=== PATIENT | male | born 1945 | race Hispanic/Latino ===

== ENCOUNTER 2020-09-04 18:16 | Inpatient (IN) | payer OTHER, MEDICARE ==
[~2020-09-04] VITALS: Ht 160 cm; Wt 96.2 kg
[2020-09-04 18:46] LABS: ABG HCO3 20.7 mmol/L (21.0-28.0); ABG OXYGEN SATURATION 84.1 % (95.0-99.0); ABG PCO2 33 mmHg (35-48)
[2020-09-04 18:57] LABS: BASOPHILS % (AUTO) 0.2 % (0.0-5.0); HEMATOCRIT 36.5 % (42-54); LYMPHOCYTES % (AUTO) 20.6 % (21.0-51.0); MEAN CORPUSCULAR HEMOGLOBIN 30.9 pg (27.0-33.0); MEAN CORPUSCULAR HGB CONC 34.8 g/dL (32.0-36.0); MEAN CORPUSCULAR VOLUME 88.8 fL (79-99); MONOCYTES % (AUTO) 9.1 % (3.0-13.0); NEUTROPHILS % (AUTO) 69.7 % (40.0-77.0); PLATELET COUNT (AUTO) 68 K/uL (130-400); RED BLOOD CELL COUNT(AUTO) 4.11 MIL/uL (4.50-6.20); RED CELL DISTRIBUTION WIDTH 12.8 % (11.0-15.5); WHITE BLOOD COUNT (AUTO) 4.7 K/uL (4.8-10.8)
[2020-09-04 19:04] LABS: CREATININE 1.8 mg/dL (0.5-1.5); POTASSIUM 3.9 mmol/L (3.5-5.1)
[2020-09-04 19:08] LABS: ALBUMIN 3.2 g/dL (3.5-5.0); BILIRUBIN,TOTAL 0.4 mg/dL (0.2-1.0); CRP QUANTITATIVE 170.1 mg/L (0.00-9.0); MAGNESIUM 1.6 mg/dL (1.80-2.40); PHOSPHORUS 2.3 mg/dL (2.5-4.9); TOTAL PROTEIN, SERUM 7.5 g/dL (6.0-8.3)
[2020-09-04] MEDS ORDERED: ALBUTEROL INHALER 90MCG/INH IH ONE (19:18)
[2020-09-04] MEDS ORDERED: DEXAMETHASONE SOD PHOSPHATE 4 MG/ML 1ML VIAL ONE (19:18)
[2020-09-04] MEDS ORDERED: CEFTRIAXONE 1G VIAL ONE (19:19)
[2020-09-04] MEDS ORDERED: ACETAMINOPHEN 325 MG TAB ONE (19:19)
[2020-09-04] MEDS ORDERED: AZITHROMYCIN 500MG+NS 250ML 250 ML IV ONE (19:19)
[2020-09-04 20:01] LABS: B-TYPE NATRIURETIC PEPTIDE 92 pg/mL (0-100)
[2020-09-04 20:15] LABS: INR 1.07 (0.85-1.15); PROTHROMBIN TIME 11.4 SEC (9.6-11.6)
[2020-09-04 20:17] LABS: PARTIAL THROMBOPLASTIN TIME 38.3 SEC (26.3-35.5)
[2020-09-04] MEDS: CEFTRIAXONE 1G VIAL IVP SCH (21:15)
[2020-09-04] MEDS: DEXAMETHASONE SOD PHOSPHATE 4 MG/ML 1ML VIAL IVP SCH (21:15)
[2020-09-04] MEDS: AZITHROMYCIN 500MG+NS 250ML 250 ML IV SCH (21:15)
[2020-09-04] MEDS ORDERED: ERGOCALCIFEROL (VITAMIN D2) 50,000 UNIT CAPSULE PO ONE (21:15)
[2020-09-04] MEDS ORDERED: ACETAMINOPHEN 325 MG TAB PO PRN (21:30)
[2020-09-04] MEDS ORDERED: DiphenhydrAMINE HCL 50 MG/ML VIAL IV PRN (21:30)
[2020-09-04] MEDS ORDERED: NITROGLYCERIN 0.4 MG SL TAB SL PRN (21:30)
[2020-09-04] MEDS ORDERED: ONDANSETRON 4MG INJ IV PRN (21:30)
[2020-09-04] MEDS ORDERED: ENOXAPARIN SODIUM 40 MG/0.4 ML SYRINGE SQ ONE (23:24)
[2020-09-04] MEDS ORDERED: ERGOCALCIFEROL (VITAMIN D2) 50,000 UNIT CAPSULE ONE (23:24)
[2020-09-05 05:38] LABS: HEMATOCRIT 34.8 % (42-54); LYMPHOCYTES % (AUTO) 12.1 % (21.0-51.0); MEAN CORPUSCULAR HEMOGLOBIN 30.7 pg (27.0-33.0); MEAN CORPUSCULAR HGB CONC 34.5 g/dL (32.0-36.0); MONOCYTES % (AUTO) 4.9 % (3.0-13.0); NEUTROPHILS % (AUTO) 82.8 % (40.0-77.0); PLATELET COUNT (AUTO) 69 K/uL (130-400); RED BLOOD CELL COUNT(AUTO) 3.91 MIL/uL (4.50-6.20); RED CELL DISTRIBUTION WIDTH 12.9 % (11.0-15.5); WHITE BLOOD COUNT (AUTO) 4.1 K/uL (4.8-10.8)
[2020-09-05 06:04] LABS: ALBUMIN 2.9 g/dL (3.5-5.0); BILIRUBIN,TOTAL 0.4 mg/dL (0.2-1.0); CREATININE 1.4 mg/dL (0.5-1.5); CRP QUANTITATIVE 125.1 mg/L (0.00-9.0); POTASSIUM 4.2 mmol/L (3.5-5.1)
[2020-09-05] MEDS ORDERED: ASCORBIC ACID 500 MG TAB ONE (07:43)
[2020-09-05] MEDS ORDERED: CEFTRIAXONE 1G VIAL ONE ×2 (07:43→21:27)
[2020-09-05] MEDS ORDERED: ZINC SULFATE 220 CAPSULE ONE (07:43)
[2020-09-05] MEDS ORDERED: FAMOTIDINE 20MG VIAL IV ONE (07:44)
[2020-09-05] MEDS: ENOXAPARIN SODIUM 40 MG/0.4 ML SYRINGE SQ SCH (09:00)
[2020-09-05] MEDS: ZINC SULFATE 220 CAPSULE PO SCH (09:00)
[2020-09-05] MEDS: FAMOTIDINE 20MG VIAL IV SCH (09:00)
[2020-09-05] MEDS: ASCORBIC ACID 500 MG TAB PO SCH (09:00)
[2020-09-05] MEDS: CEFTRIAXONE 1G VIAL IVP SCH ×2 (09:15→21:15)
[2020-09-05] MEDS ORDERED: MAGNESIUM 2GM PREMIX 50ML 50 ML IV SCH (10:45)
[2020-09-05] MEDS ORDERED: MAGNESIUM 2GM PREMIX 50ML 50 ML IV ONE (10:55)
[2020-09-05] MEDS ORDERED: FUROSEMIDE 40MG VIAL IV SCH (13:00)
[2020-09-05] MEDS ORDERED: FUROSEMIDE 20MG VIAL ONE ×2 (13:07→13:13)
[2020-09-05] MEDS ORDERED: DiphenhydrAMINE HCL 50 MG/ML VIAL ONE (13:28)
[2020-09-05] MEDS ORDERED: MORPHINE 2 MG SYG ONE (13:29)
[2020-09-05 14:13] LABS: ABG BASE EXCESS -6.7 mmol/L (-2.0-3.0); ABG OXYGEN SATURATION 96.8 % (95.0-99.0); ABG PCO2 34 mmHg (35-48)
[2020-09-05] MEDS ORDERED: SODIUM BICARB 50MEQ 50ML VIAL 100 ML ONE (14:25)
[2020-09-05] MEDS ORDERED: DEXMEDETOMIDINE HCL 400 MCG in 0.9%NACL 100ML 100 ML IV SCH (14:45)
[2020-09-05] MEDS ORDERED: ACETAMINOPHEN 650 MG SUPPOSITORY RC ONE (14:58)
[2020-09-05] MEDS ORDERED: IBUPROFEN 200 MG TAB ONE (15:46)
[2020-09-05] MEDS ORDERED: IBUPROFEN 400 MG TABLET ONE (15:46)
[2020-09-05] MEDS ORDERED: 0.9%NACL 1000ML 1,000 ML IV ONE ×2 (20:35→20:44)
[2020-09-05] MEDS: DEXAMETHASONE SOD PHOSPHATE 4 MG/ML 1ML VIAL IVP SCH (21:15)
[2020-09-05] MEDS ORDERED: DEXAMETHASONE SOD PHOSPHATE 10MG/ML 1ML VIAL ONE (21:26)
[2020-09-05] MEDS ORDERED: AZITHROMYCIN 500MG+NS 250ML 250 ML IV ONE (21:26)
[2020-09-06] VITALS (9 sets, daily range): BP systolic 100–197; BP diastolic 65–110
[2020-09-06 03:13] LABS: ABG BASE EXCESS 0.5 mmol/L (-2.0-3.0); ABG OXYGEN SATURATION 98.3 % (95.0-99.0); ABG PCO2 40 mmHg (35-48)
[2020-09-06 05:09] LABS: HEMATOCRIT 34.7 % (42-54); LYMPHOCYTES % (AUTO) 15.3 % (21.0-51.0); MEAN CORPUSCULAR HEMOGLOBIN 30.5 pg (27.0-33.0); MEAN CORPUSCULAR VOLUME 89.7 fL (79-99); MONOCYTES % (AUTO) 5.2 % (3.0-13.0); NEUTROPHILS % (AUTO) 79.1 % (40.0-77.0); PLATELET COUNT (AUTO) 73 K/uL (130-400); RED BLOOD CELL COUNT(AUTO) 3.87 MIL/uL (4.50-6.20); RED CELL DISTRIBUTION WIDTH 12.9 % (11.0-15.5); WHITE BLOOD COUNT (AUTO) 4.8 K/uL (4.8-10.8)
[2020-09-06 05:40] LABS: ALBUMIN 2.7 g/dL (3.5-5.0); BILIRUBIN,TOTAL 0.4 mg/dL (0.2-1.0); CREATININE 1.9 mg/dL (0.5-1.5); CRP QUANTITATIVE 164.7 mg/L (0.00-9.0); MAGNESIUM 1.7 mg/dL (1.80-2.40); POTASSIUM 4.9 mmol/L (3.5-5.1); TOTAL PROTEIN, SERUM 6.8 g/dL (6.0-8.3)
[2020-09-06] MEDS ORDERED: DIAZEPAM 2 MG TAB PO PRN (08:30)
[2020-09-06] MEDS: ENOXAPARIN SODIUM 40 MG/0.4 ML SYRINGE SQ SCH (08:35)
[2020-09-06] MEDS: ZINC SULFATE 220 CAPSULE PO SCH (08:36)
[2020-09-06] MEDS: ASCORBIC ACID 500 MG TAB PO SCH (08:36)
[2020-09-06] MEDS: FAMOTIDINE 20MG VIAL IV SCH (08:37)
[2020-09-06] MEDS: CEFTRIAXONE 1G VIAL IVP SCH ×2 (08:37→20:55)
[2020-09-06] MEDS: DEXAMETHASONE SOD PHOSPHATE 4 MG/ML 1ML VIAL IVP SCH (08:48)
[2020-09-06] MEDS: MORPHINE 2 MG SYG IV PRN (11:33)
[2020-09-06] MEDS: DIAZEPAM 2 MG TAB PO PRN (13:43)
[2020-09-06] MEDS ORDERED: QUETIAPINE FUMARATE 25 MG TAB ONE (14:12)
[2020-09-06] MEDS: AZITHROMYCIN 500MG+NS 250ML 250 ML IV SCH (20:55)
[2020-09-06] MEDS: QUETIAPINE FUMARATE 25 MG TAB PO SCH (20:55)
[2020-09-07 04:00] VITALS: BP 173/86
[2020-09-07 04:54] LABS: LYMPHOCYTES % (AUTO) 10.2 % (21.0-51.0); MEAN CORPUSCULAR HEMOGLOBIN 30.9 pg (27.0-33.0); MEAN CORPUSCULAR HGB CONC 33.6 g/dL (32.0-36.0); MEAN CORPUSCULAR VOLUME 91.9 fL (79-99); MONOCYTES % (AUTO) 9.9 % (3.0-13.0); NEUTROPHILS % (AUTO) 79.1 % (40.0-77.0); PLATELET COUNT (AUTO) 72 K/uL (130-400); RED BLOOD CELL COUNT(AUTO) 3.59 MIL/uL (4.50-6.20); RED CELL DISTRIBUTION WIDTH 13.2 % (11.0-15.5); WHITE BLOOD COUNT (AUTO) 3.6 K/uL (4.8-10.8)
[2020-09-07 05:19] LABS: ALBUMIN 2.4 g/dL (3.5-5.0); BILIRUBIN,TOTAL 0.4 mg/dL (0.2-1.0); CREATININE 1.3 mg/dL (0.5-1.5); MAGNESIUM 2.3 mg/dL (1.80-2.40); PHOSPHORUS 2.7 mg/dL (2.5-4.9); POTASSIUM 4.2 mmol/L (3.5-5.1); TOTAL PROTEIN, SERUM 6.8 g/dL (6.0-8.3)
[2020-09-07] MEDS: DIAZEPAM 2 MG TAB PO PRN ×3 (06:04→23:42)
[2020-09-07 07:23] VITALS: BP 189/97
[2020-09-07] MEDS ORDERED: HYDRALAZINE 20MG/ML VIAL IV PRN (08:00)
[2020-09-07] MEDS: CEFTRIAXONE 1G VIAL IVP SCH ×2 (08:30→21:04)
[2020-09-07] MEDS: ZINC SULFATE 220 CAPSULE PO SCH (08:30)
[2020-09-07] MEDS: ASCORBIC ACID 500 MG TAB PO SCH (08:30)
[2020-09-07] MEDS: FAMOTIDINE 20MG VIAL IV SCH (08:30)
[2020-09-07] MEDS: QUETIAPINE FUMARATE 25 MG TAB PO SCH ×2 (08:30→19:38)
[2020-09-07] MEDS: ASPIRIN 81MG CHEW TAB PO SCH (08:30)
[2020-09-07] MEDS: ENOXAPARIN SODIUM 40 MG/0.4 ML SYRINGE SQ SCH (08:31)
[2020-09-07 11:33] VITALS: BP 184/88
[2020-09-07 20:00] VITALS: BP 139/72
[2020-09-07] MEDS: DEXAMETHASONE SOD PHOSPHATE 4 MG/ML 1ML VIAL IVP SCH (21:03)
[2020-09-07] MEDS: AZITHROMYCIN 500MG+NS 250ML 250 ML IV SCH (21:03)
[2020-09-07 23:47] VITALS: BP 162/78
[2020-09-08 04:38] VITALS: BP 136/72
[2020-09-08 04:41] LABS: HEMATOCRIT 34.2 % (42-54); MEAN CORPUSCULAR HEMOGLOBIN 30.9 pg (27.0-33.0); MEAN CORPUSCULAR HGB CONC 33.9 g/dL (32.0-36.0); RED BLOOD CELL COUNT(AUTO) 3.76 MIL/uL (4.50-6.20); RED CELL DISTRIBUTION WIDTH 13.2 % (11.0-15.5); WHITE BLOOD COUNT (AUTO) 4.7 K/uL (4.8-10.8)
[2020-09-08] MEDS: DIAZEPAM 2 MG TAB PO PRN (04:51)
[2020-09-08 04:56] LABS: CREATININE 1.1 mg/dL (0.5-1.5); MAGNESIUM 2.1 mg/dL (1.80-2.40); PHOSPHORUS 3.9 mg/dL (2.5-4.9); POTASSIUM 4.8 mmol/L (3.5-5.1)
[2020-09-08 08:00] VITALS: BP 175/86
[2020-09-08] MEDS: QUETIAPINE FUMARATE 25 MG TAB PO SCH ×2 (08:25→20:08)
[2020-09-08] MEDS: ZINC SULFATE 220 CAPSULE PO SCH (08:25)
[2020-09-08] MEDS: ASCORBIC ACID 500 MG TAB PO SCH (08:25)
[2020-09-08] MEDS: ASPIRIN 81MG CHEW TAB PO SCH (08:25)
[2020-09-08] MEDS: ENOXAPARIN SODIUM 40 MG/0.4 ML SYRINGE SQ SCH (08:25)
[2020-09-08] MEDS: CEFTRIAXONE 1G VIAL IVP SCH ×2 (09:26→20:09)
[2020-09-08] MEDS: FAMOTIDINE 20MG VIAL IV SCH (09:26)
[2020-09-08 11:00] VITALS: BP 178/96
[2020-09-08] MEDS: DEXAMETHASONE SOD PHOSPHATE 4 MG/ML 1ML VIAL IVP SCH (20:09)
[2020-09-08] MEDS: AZITHROMYCIN 500MG+NS 250ML 250 ML IV SCH (20:09)
[2020-09-08 20:15] VITALS: BP 170/102
[2020-09-08] MEDS: LABETALOL 20MG SYG IV PRN (20:20)
[2020-09-08 21:10] VITALS: BP 156/94
[2020-09-09] VITALS (8 sets, daily range): BP systolic 129–167; BP diastolic 72–101
[2020-09-09 04:49] LABS: BASOPHILS % (AUTO) 0.2 % (0.0-5.0); HEMATOCRIT 34.9 % (42-54); LYMPHOCYTES % (AUTO) 6.2 % (21.0-51.0); MEAN CORPUSCULAR HEMOGLOBIN 30.5 pg (27.0-33.0); MEAN CORPUSCULAR VOLUME 92.6 fL (79-99); MONOCYTES % (AUTO) 5.3 % (3.0-13.0); NEUTROPHILS % (AUTO) 86.5 % (40.0-77.0); PLATELET COUNT (AUTO) 82 K/uL (130-400); RED BLOOD CELL COUNT(AUTO) 3.77 MIL/uL (4.50-6.20); RED CELL DISTRIBUTION WIDTH 13.2 % (11.0-15.5); WHITE BLOOD COUNT (AUTO) 5.5 K/uL (4.8-10.8)
[2020-09-09 05:08] LABS: ALBUMIN 2.4 g/dL (3.5-5.0); BILIRUBIN,TOTAL 0.7 mg/dL (0.2-1.0); CREATININE 1.1 mg/dL (0.5-1.5); MAGNESIUM 2.1 mg/dL (1.80-2.40); PHOSPHORUS 3.8 mg/dL (2.5-4.9); POTASSIUM 4.9 mmol/L (3.5-5.1); TOTAL PROTEIN, SERUM 6.9 g/dL (6.0-8.3)
[2020-09-09] MEDS: QUETIAPINE FUMARATE 25 MG TAB PO SCH ×2 (08:24→21:00)
[2020-09-09] MEDS: ASCORBIC ACID 500 MG TAB PO SCH (08:24)
[2020-09-09] MEDS: ENOXAPARIN SODIUM 40 MG/0.4 ML SYRINGE SQ SCH (08:24)
[2020-09-09] MEDS: ZINC SULFATE 220 CAPSULE PO SCH (08:24)
[2020-09-09] MEDS: CEFTRIAXONE 1G VIAL IVP SCH ×2 (08:25→21:17)
[2020-09-09] MEDS: ASPIRIN 81MG CHEW TAB PO SCH (08:25)
[2020-09-09] MEDS: FAMOTIDINE 20MG VIAL IV SCH (08:25)
[2020-09-09] MEDS ORDERED: LORAZEPAM 2 MG/ML 1 ML VIAL ONE (15:30)
[2020-09-09] MEDS ORDERED: LORAZEPAM 2 MG/ML 1 ML VIAL IM PRN (15:30)
[2020-09-09] MEDS: MORPHINE 2 MG SYG IV PRN (15:37)
[2020-09-09] MEDS: AZITHROMYCIN 500MG+NS 250ML 250 ML IV SCH (21:16)
[2020-09-09] MEDS: DEXAMETHASONE SOD PHOSPHATE 4 MG/ML 1ML VIAL IVP SCH (21:17)
[2020-09-10] VITALS (31 sets, daily range): BP systolic 60–141; BP diastolic 16–94
[2020-09-10] MEDS: LORAZEPAM 2 MG/ML 1 ML VIAL IVP PRN ×3 (00:53→14:12)
[2020-09-10 04:06] LABS: ABG BASE EXCESS 3.9 mmol/L (-2.0-3.0); ABG OXYGEN SATURATION 89.3 % (95.0-99.0); ABG PCO2 40 mmHg (35-48)
[2020-09-10 05:12] LABS: HEMATOCRIT 36.8 % (42-54); MEAN CORPUSCULAR HEMOGLOBIN 30.4 pg (27.0-33.0); MEAN CORPUSCULAR HGB CONC 33.4 g/dL (32.0-36.0); MEAN CORPUSCULAR VOLUME 90.9 fL (79-99); RED BLOOD CELL COUNT(AUTO) 4.05 MIL/uL (4.50-6.20); WHITE BLOOD COUNT (AUTO) 8.6 K/uL (4.8-10.8)
[2020-09-10 05:41] LABS: CREATININE 1.2 mg/dL (0.5-1.5); MAGNESIUM 2.3 mg/dL (1.80-2.40); PHOSPHORUS 3.1 mg/dL (2.5-4.9); POTASSIUM 4.3 mmol/L (3.5-5.1)
[2020-09-10] MEDS: ASPIRIN 81MG CHEW TAB PO SCH (07:46)
[2020-09-10] MEDS: QUETIAPINE FUMARATE 25 MG TAB PO SCH ×2 (07:46→21:00)
[2020-09-10] MEDS: FAMOTIDINE 20MG VIAL IV SCH (07:46)
[2020-09-10] MEDS: ZINC SULFATE 220 CAPSULE PO SCH (07:46)
[2020-09-10] MEDS: DIAZEPAM 2 MG TAB PO PRN (07:47)
[2020-09-10] MEDS: ASCORBIC ACID 500 MG TAB PO SCH (07:48)
[2020-09-10] MEDS: ENOXAPARIN SODIUM 40 MG/0.4 ML SYRINGE SQ SCH (07:49)
[2020-09-10] MEDS: CEFTRIAXONE 1G VIAL IVP SCH ×2 (08:05→23:54)
[2020-09-10] MEDS: LABETALOL 20MG SYG IV PRN (12:47)
[2020-09-10] MEDS: DEXMEDETOMIDINE HCL 400 MCG in 0.9%NACL 100ML 100 ML IV SCH (15:49)
[2020-09-10] MEDS ORDERED: NOREPINEPHRIN 4MG/NS 250ML 250 ML IV ONE (20:45)
[2020-09-10] MEDS ORDERED: NOREPINEPHRIN 4MG/NS 250ML 250 ML IV SCH (21:15)
[2020-09-10] MEDS ORDERED: LORAZEPAM 2 MG/ML 1 ML VIAL IVP PRN (23:00)
[2020-09-10] MEDS: DEXAMETHASONE SOD PHOSPHATE 4 MG/ML 1ML VIAL IVP SCH (23:54)
[2020-09-10] MEDS: MORPHINE 2 MG SYG IVP PRN (23:57)
[2020-09-11] VITALS (15 sets, daily range): BP systolic 44–118; BP diastolic 28–76
[2020-09-11] MEDS: MORPHINE 2 MG SYG IVP PRN ×4 (06:18→13:06)
[2020-09-11] MEDS: DEXMEDETOMIDINE HCL 400 MCG in 0.9%NACL 100ML 100 ML IV SCH (07:30)
[2020-09-11] MEDS: ASCORBIC ACID 500 MG TAB PO SCH (07:59)
[2020-09-11] MEDS: ASPIRIN 81MG CHEW TAB PO SCH (07:59)
[2020-09-11] MEDS: ZINC SULFATE 220 CAPSULE PO SCH (07:59)
[2020-09-11] MEDS: QUETIAPINE FUMARATE 25 MG TAB PO SCH (07:59)
[2020-09-11] MEDS: LORAZEPAM 2 MG/ML 1 ML VIAL IVP PRN ×2 (08:12→10:17)
[2020-09-11] MEDS ORDERED: LORAZEPAM 2 MG/ML 1 ML VIAL IM PRN (09:15)
[2020-09-11] MEDS ORDERED: PHARMACY COMMUNICATION MISC SCH (09:15)
[2020-09-11] MEDS ORDERED: MORPHINE PCA 50MG/50ML 50 ML IV PRN (09:15)
[2020-09-11] MEDS: FAMOTIDINE 20MG VIAL IV SCH (09:26)
== END 2020-09-11 15:55 | disposition expired | DRG 177 ==
LOC: EDH 18:16 → EDHIP 21:17 → 4BH 09-06 01:29 → 4AH 09-06 22:51 → 2AH 09-09 10:48
PROVIDERS: ADMIT Internal Medicine; ATTEND Internal Medicine
PROC: XW13325 Transfusion of Convalescent Plasma (Nonautologous) into Peripheral Vein, Percutaneous Approach, New Technology Group 5 (ICD-10-PCS; principal; 2020-09-05)
PROC: 5A0935A Assistance with Respiratory Ventilation, Less than 24 Consecutive Hours, High Flow/Velocity Cannula (ICD-10-PCS; 2020-09-05)
PROC: 5A09357 Assistance with Respiratory Ventilation, Less than 24 Consecutive Hours, Continuous Positive Airway Pressure (ICD-10-PCS; 2020-09-06)
PROC: 5A09357 Assistance with Respiratory Ventilation, Less than 24 Consecutive Hours, Continuous Positive Airway Pressure (ICD-10-PCS; 2020-09-07)
PROC: 5A09357 Assistance with Respiratory Ventilation, Less than 24 Consecutive Hours, Continuous Positive Airway Pressure (ICD-10-PCS; 2020-09-08)
PROC: 5A0935A Assistance with Respiratory Ventilation, Less than 24 Consecutive Hours, High Flow/Velocity Cannula (ICD-10-PCS; 2020-09-09)
PROC: 5A09457 Assistance with Respiratory Ventilation, 24-96 Consecutive Hours, Continuous Positive Airway Pressure (ICD-10-PCS; 2020-09-09)
DX: U07.1 COVID-19 (principal); J80 Acute respiratory distress syndrome; J12.9 Viral pneumonia, unspecified; E66.01 Morbid (severe) obesity due to excess calories; I10 Essential (primary) hypertension; E11.9 Type 2 diabetes mellitus without complications; F41.9 Anxiety disorder, unspecified; Z51.5 Encounter for palliative care; Z66 Do not resuscitate; D69.6 Thrombocytopenia, unspecified; E83.42 Hypomagnesemia; R79.89 Other specified abnormal findings of blood chemistry; Z68.37 Body mass index [BMI] 37.0-37.9, adult
CPT/HCPCS: 36415; 36600; 71045; 80048; 80053; 82550; 82728; 82803; 82948; 83605; 83615; 83735; 83880; 84100; 84145; 84484; 85025; 85027; 85378; 85610; 85730; 86140; 86850; 86900; 86901; 86927; 87040; 87426; 93005; 93970; 94660; 99291; G0378; J0456; J0696; J1100; J1200; J1650; J1940; J2060; J3475; J3490; J7030